=== PATIENT | male | born 1945 | race Caucasian/White ===

== ENCOUNTER 2019-07-23 09:34 | Emergency (ER) | payer OTHER ==
[~2019-07-23] VITALS: Ht 182.9 cm; Wt 109.8 kg
[2019-07-23] MEDS ORDERED: XARELTO20 MG PO (09:44)
[2019-07-23 10:55] VITALS: BP 106/55
== END 2019-07-23 10:58 | disposition home or self-care (01) ==
LOC: M.ERS 09:34
DX: R04.0 Epistaxis (principal); Z95.5 Presence of coronary angioplasty implant and graft; Z96.643 Presence of artificial hip joint, bilateral; Z88.6 Allergy status to analgesic agent